=== PATIENT | male | born 1985 | race Caucasian/White ===

== ENCOUNTER 2022-09-09 02:00 | Emergency (ER) | payer OTHER ==
--- NOTE | 2022-09-09 02:11 | ERPHSYRPT ---
- History of Present Illness Time Seen by Provider: 09/09/22 02:06 Source: patient Exam Limitations: intoxication Physician History: This is a 37-year-old white male patient who presents by paramedics stating that there is a parasite in his mouth. The patient called 911. He presents with his thumb in his mouth and he will not move it because he is "holding onto it". Patient has no teeth present. They have all been removed. Severity: mild Associated Symptoms: other (Mouth pain) Travel Risk - International Travel Have you traveled outside of the country in past 3 weeks: No - Coronavirus Screening Are you exhibiting any of the following symptoms?: No Close contact with a COVID-19 positive Pt in past 14-21 Days: No - Review of Systems Constitutional: No Symptoms Eyes: No Symptoms Ears, Nose, & Throat: Mouth Pain Respiratory: No Symptoms Cardiac: No Symptoms Abdominal/Gastrointestinal: No Symptoms Genitourinary Symptoms: No Symptoms Musculoskeletal: No Symptoms Skin: No Symptoms Neurological: No Symptoms Psychological: Anxiety, Hallucinations, No Suicidal Ideations, No Homicidal Ideations Endocrine: No Symptoms Hematologic/Lymphatic: No Symptoms Immunological/Allergic: No Symptoms All Other Systems: Reviewed and Negative - Past Medical History Pertinent Past Medical History: No - Past Surgical History Past Surgical History: No - Physical Exam General Appearance: no apparent distress, alert, anxiety Eye Exam: PERRL/EOMI, eyes nml inspection Ears, Nose, Throat Exam: moist mucous membranes, other (Patient will not remove his thumbs from his mouth because he is concerned that the "parasite" will travel down his throat) Respiratory Exam: airway intact, No chest tenderness, No respiratory distress Gastrointestinal/Abdomen Exam: No tenderness Rectal Exam: not done Back Exam: normal inspection, normal range of motion, No CVA tenderness, No vertebral tenderness Extremity Exam: normal inspection, normal range of motion, pelvis stable Neurologic Exam: alert, oriented x 3, cooperative, country singer II-XII nml as tested Skin Exam: normal color, warm, dry Lymphatic Exam: No adenopathy SpO2 Interpretation: normal O2 Delivery: Room Air - Course Nursing assessment & vital signs reviewed: Yes Ordered Tests: Medication Summary Discontinued Medications Generic Name Dose Route Start Last Admin Trade Name Freq PRN Reason Stop Dose Admin Amoxicillin 500 mg 09/09/22 02:16 Amoxicillin Trihydrate 500 Mg Capsule PO 03/23/23 02:17 STAT ONE Diphenhydramine/Hydrocorti/Nystatin 30 ml 09/09/22 02:21 Nystatin/Tcn/Hc/Diphenhydramin 237 Ml Bottle PO 09/09/22 02:22 STAT ONE Metronidazole 500 mg 09/09/22 02:16 Metronidazole 500 Mg Tablet PO 09/09/22 02:17 STAT ONE - Progress Progress: unchanged Counseled pt/family regarding: diagnosis, need for follow-up, rad results Medical Desision Making - Discussion of managment Agreed on:: Treatment plan - Risk of complications The pt has a mod risk of morbidity or mortality based on: Need for prescription drug management - Departure Departure Disposition: Home Clinical Impression: Gingival bleeding, Superficial injury of gum with infection Condition: Stable Critical Care Time: No Additional Instructions: Rinse your mouth out with Listerine solution. Follow-up with a dentist/oral surgeon by phone tomorrow to make arrangements for further evaluation management. Prescriptions: Amoxicillin 500 mg Cap [Amoxil 500 mg] 500 mg PO TID #15 cap Metronidazole 500 mg [Flagyl 500 MG] 500 mg PO TID #15 tablet
[2022-09-09] MEDS ORDERED: Flagyl 500 MG PO ONE (02:16)
[2022-09-09] MEDS ORDERED: AMOXIL 500 MG PO ONE (02:16)
[2022-09-09] MEDS ORDERED: MARY'S MOUTHWASH PO ONE (02:21)
[2022-09-09 02:23] VITALS: O2SAT 99
[2022-09-09] MEDS ORDERED: Flagyl 500 MG ONE (02:39)
[2022-09-09] MEDS ORDERED: AMOXIL 500 MG ONE (02:40)
[2022-09-09] MEDS ORDERED: Nystatin SUSPENSION 60 ML PO ONE ×2 (02:49→02:50)
[2022-09-09] MEDS ORDERED: BENADRYL 12.5 MG/5 ML PO ONE ×2 (02:50→02:52)
[2022-09-09] MEDS ORDERED: BENADRYL 12.5 MG/5 ML ONE (02:52)
== END 2022-09-09 03:18 | disposition home or self-care (01) ==
LOC: ED 02:00
DX: S00.502A Unspecified superficial injury of oral cavity, initial encounter (principal); L08.9 Local infection of the skin and subcutaneous tissue, unspecified; K06.8 Other specified disorders of gingiva and edentulous alveolar ridge
CPT/HCPCS: 99283; A9270-GY